=== PATIENT | female | born 1975 | race Asian ===

== ENCOUNTER → 2019-08-09 | Outpatient (CLI) | payer BC ==
--- NOTE | 2019-08-09 16:11 | KCIC ---
Bilateral diagnostic digital mammograms: Reason for examination: Right breast lump for 25 years. Baseline exam. Interpretation was made with the benefit of CAD. The skin and nipples show no abnormalities. No abnormal axillary lymph nodes are seen. The breast parenchyma is extremely dense. (Breast density: Category D) There is a circumscribed nodule with coarse calcifications consistent with a degenerating fibroadenoma at the 3:00 position anteriorly in the right breast which corresponds to the area of clinical concern. In addition, there is a small nodule at the 7:00 C position of the right breast and a nodule at the 4:00 B position of the left breast evident. No suspicious calcifications are seen. 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 Additional small nodular densities at the 7:00 C position of the right breast and 4:00 B position of the left breast. Ultrasound to follow. Your patient's mammogram demonstrates that she has dense breast tissue (breast density category C or D), which could hide abnormalities, and if she has other risk factors for breast cancer that have been identified, she might benefit from supplemental screening tests that may be suggested by you as her ordering physician. Dense breast tissue, in and of itself, is a relatively common condition. Therefore, this information is not provided to cause undue concern, but rather to raise your awareness and to promote discussion with your patient regarding the presence of other risk factors, in addition to dense breast tissue. Your patient's mammography results will be sent to her. BI-RADS Category 0: Incomplete. Needs additional imaging evaluation. Bilateral breast ultrasound: Bilateral breast ultrasound including evaluation of the retroareolar and axillary regions of both breasts was performed. In the right breast at the 3:00 position 2 cm from the nipple, there is a 1.3 cm circumscribed lesion with calcifications which corresponds to the area of clinical concern and shows some posterior acoustic enhancement consistent with fibroadenoma. In the 7:00 position 4 cm from the nipple, there is a hypoechoic circumscribed lesion measuring 7.2 mm in greatest dimension also probably representing a fibroadenoma. No other cystic or solid lesions are seen. No abnormal appearing lymph nodes are seen in the axilla. In the left breast at the 3:00 position 3 cm from the nipple, there is a hypoechoic circumscribed lesion measuring 6.7 mm in size consistent with a fibroadenoma. In the 3:00 position 5 cm from the nipple, there is a 4.3 mm hypoechoic circumscribed lesion consistent with a small fibroadenoma. In the 2:00 position 8 cm from the nipple, there is a circumscribed nodule with echogenic hilum consistent with a intramammary lymph node measuring 7.1 mm in size. In the 2:00 position 5 cm from the nipple, there is a 1.1 cm hypoechoic circumscribed lesion consistent with a fibroadenoma. In the 1:30 position 4 cm from the nipple, there is a hypoechoic circumscribed lesion measuring 6 mm in size consistent with fibroadenoma. In the 10:00 position 4 cm from the nipple, there are 2 small nodules which appear to be anechoic and probably represents cysts measuring 4 mm and 5.9 mm in size. No suspicious-appearing nodules are seen. No abnormal appearing lymph nodes are seen in the axilla. IMPRESSION: 1.3 cm nodule with calcifications at the 3:00 position of the right breast corresponds to the area of clinical concern and would be consistent with a degenerating fibroadenoma. Multiple additional small nodules consistent with fibroadenoma and cysts bilaterally. Recommend reevaluation with ultrasound in 6 months. BI-RADS Category 3: Probably Benign. "Our facility is accredited by the [employer] Mammography Program." This patient's information has been entered into a reminder system for the patient to be notified with the results of her examination and a target date for the next mammogram. Electronically signed by: Rosa Cervantes MD (08/09/2019 4:08 PM) [facility]
== END | disposition home or self-care (01) ==
LOC: KCIC MAMMO 12:38
PROVIDERS: ATTEND Obstetrics & Gynecology
DX: N63.14 Unspecified lump in the right breast, lower inner quadrant (principal); R92.1 Mammographic calcification found on diagnostic imaging of breast; R92.2 Inconclusive mammogram
CPT/HCPCS: 76641; 77066